=== PATIENT | female | born 1975 | race Caucasian/White ===

== ENCOUNTER 2019-04-16 00:15 | Emergency (ER) | payer OTHER ==
[~2019-04-16] VITALS: Ht 157.5 cm; Wt 72.1 kg
[~2019-04-16 00:15] MED LIST: ELMIRON100 MG PO; GABAPENTIN300 MG PO; MACROBID 100 M100 MG PO; OMEPRAZOLE40 MG PO; PROBIOTIC1 EAC1 PO
[2019-04-16] MEDS ORDERED: [UNRECOGNIZED DRUG - OTHER] (01:07)
[2019-04-16] MEDS ORDERED: PROTONIX40 MG (01:08)
[2019-04-16] MEDS ORDERED: KEFLEX500 MG (01:09)
[2019-04-16] MEDS ORDERED: DICY20TA PO (03:06)
== END 2019-04-16 03:41 | disposition home or self-care (01) ==
LOC: ER 00:15
DX: K57.30 Diverticulosis of large intestine without perforation or abscess without bleeding (principal); R10.12 Left upper quadrant pain

== ENCOUNTER 2019-11-16 11:05 | Inpatient (IN) | payer OTHER ==
[~2019-11-16] VITALS: Ht 157.5 cm; Wt 76.2 kg
[~2019-11-16 11:05] MED LIST changes: +DICY20TA PO; +KEFLEX500 MG; +PROTONIX40 MG; +[UNRECOGNIZED DRUG - OTHER]
== END 2019-11-21 15:59 | disposition home or self-care (01) | DRG 392 ==
LOC: ER 11:05 → MEDI 17:46
PROVIDERS: ADMIT Internal Medicine; ATTEND Internal Medicine
PROC: BW21ZZZ Computerized Tomography (CT Scan) of Abdomen and Pelvis (ICD-10-PCS; principal; 2019-11-16)
DX: K57.32 Diverticulitis of large intestine without perforation or abscess without bleeding (principal); N39.0 Urinary tract infection, site not specified; M79.7 Fibromyalgia; N18.9 Chronic kidney disease, unspecified; Z20.828 Contact with and (suspected) exposure to other viral communicable diseases; F41.9 Anxiety disorder, unspecified

== ENCOUNTER 2021-05-07 11:44 | Inpatient (IN) | payer OTHER ==
[~2021-05-07] VITALS: Ht 157.5 cm; Wt 67.6 kg
[2021-05-07] MEDS ORDERED: FLOVENT DISKUS50 MCG IH (13:27)
[2021-05-07] MEDS ORDERED: LEVSIN/SL0.125 MG SL (13:27)
[2021-05-07] MEDS ORDERED: CLOBETASOL (13:28)
[2021-05-07] MEDS ORDERED: TESTO (13:29)
[2021-05-11] MEDS ORDERED: TOLTERODINE TART4 MG (08:06)
[2021-05-11] MEDS ORDERED: FENOFIBRATE160 MG (08:06)
[2021-05-11] MEDS ORDERED: VITAMIN D3250 MCG (08:06)
== END 2021-05-14 14:26 | disposition home or self-care (01) | DRG 331 ==
LOC: SURH 05-11 05:55 → O/R 05-11 05:55 → SURH 05-11 12:30
PROVIDERS: ADMIT Colon & Rectal Surgery; ATTEND Colon & Rectal Surgery
PROC: 0DBP4ZZ Excision of Rectum, Percutaneous Endoscopic Approach (ICD-10-PCS; 2021-05-11)
PROC: 0DTN4ZZ Resection of Sigmoid Colon, Percutaneous Endoscopic Approach (ICD-10-PCS; principal; 2021-05-11 14:15)
DX: K57.32 Diverticulitis of large intestine without perforation or abscess without bleeding (principal); K64.1 Second degree hemorrhoids; K58.0 Irritable bowel syndrome with diarrhea; K30 Functional dyspepsia; Z86.010 Personal history of colon polyps

== ENCOUNTER 2021-07-19 15:05 | Inpatient (IN) | payer OTHER ==
[~2021-07-19] VITALS: Ht 157.5 cm; Wt 68.5 kg
[~2021-07-19 15:05] MED LIST changes: +CLOBETASOL; +FENOFIBRATE160 MG; +FLOVENT DISKUS50 MCG IH; +LEVSIN/SL0.125 MG SL; +TESTO; +TOLTERODINE TART4 MG; +VITAMIN D3250 MCG
--- NOTE | 2021-07-19 16:12 | NUR ---
PTE SE RECIBE POR DOLOR DE [place]OM[place] REFIERE PARAMEDICO Y PTE.
--- NOTE | 2021-07-19 17:01 | NUR ---
SE EDUCA A TE SOBRE TX MEDICO ESTA REFIERE ENTENDER. SE BEATRIZ MUESTRAS DE LABORATORIO UTILIZANDO MEDIDAS ASEPTICAS. SE COLOCA H/L A PTE Y SE COLOCA IV FLUIDS. PTE SE CONTINUA MONITORIANDO POR CAMBIOS.
--- NOTE | 2021-07-19 17:45 | NUR ---
SE LE ORIENTA A PACIENTE SOBRE LAS ORDENES MEDICAS, REFIERE ENTEDER LAS MISMAS. SE LE REALIZA LA MUETRAS DEL COVID-19 MOLECULAR, SE LE ORIENTA A PACIENTE A NO COMER NADA, BAUDILIO LAS ORDENES MEDICAS.
== END 2021-07-22 12:12 | disposition home or self-care (01) | DRG 389 ==
LOC: ER 15:05 → SURH 18:28
PROVIDERS: ADMIT Colon & Rectal Surgery; ATTEND Colon & Rectal Surgery
DX: K56.690 Other partial intestinal obstruction (principal); K57.32 Diverticulitis of large intestine without perforation or abscess without bleeding; K45.8 Other specified abdominal hernia without obstruction or gangrene; Z20.822 Contact with and (suspected) exposure to COVID-19